=== PATIENT | male | born 1940 | race Caucasian/White ===

== ENCOUNTER 2021-07-23 13:50 | Inpatient (IN) | payer OTHER, MEDICARE ==
[~2021-07-23] VITALS: Ht 170.2 cm; Wt 63.4 kg
[~2021-07-23 13:50] MED LIST: ASA5UEC; MYLANTA TABLET1 TA1 PO; PREVACID15 MG PO; SULAR
[2021-07-23 13:55] VITALS: BP 110/60
[2021-07-23 14:33] LABS: ABSOLUTE NEUTROPHILS 4.1 thou/uL (1.4-8.2); BASOPHILS 1.4 % (0.0-2.0); EOSINOPHILS 2.3 % (0.0-3.0); HEMATOCRIT 35.7 % (42.0-52.0); HEMOGLOBIN 10.6 gm/dL (14.0-18.0); LYMPHOCYTES 10.3 % (24.0-44.0); MCH 22.9 pg (26.0-34.0); MCHC 29.8 g/dL (28.0-37.0); PLATELET COUNT 237 thou/uL (150-400); RBC 4.64 mil/uL (4.50-6.00); RDW 19.2 % (10.5-14.5); WBC 5.9 thou/uL (4.0-11.0)
[2021-07-23 14:37] LABS: CALCIUM 8.1 mg/dL (8.5-10.1); CREATININE 1.5 mg/dL (0.7-1.3); POTASSIUM 3.9 mmol/L (3.5-5.1)
[2021-07-23 14:44] LABS: INR 1.18; PROTIME 12.8 Seconds (10.5-12.1)
[2021-07-23 14:47] LABS: ALBUMIN 2.8 g/dL (3.4-5.0); TOTAL BILIRUBIN 0.4 mg/dL (0.2-1.0); TOTAL PROTEIN 6.2 g/dL (6.4-8.2)
[2021-07-23 15:24] LABS: ANISOCYTOSIS 2+; HYPOCHROMASIA SLIGHT; MACROCYTES FEW; MICROCYTES 1+; OVALOCYTES OCCASIONAL; POLYCHROMASIA OCCASIONAL
[2021-07-23] MEDS ORDERED: TRAZODONE HCL50 MG PO (15:56)
[2021-07-23] MEDS ORDERED: ARFORMOTER15 MCG/2 M INH (15:56)
[2021-07-23 17:14] LABS: URINE BILIRUBIN NEGATIVE (Negative); URINE BLOOD NEGATIVE (Negative); URINE CLARITY CLEAR; URINE COLOR YELLOW; URINE GLUCOSE-RANDOM* NEGATIVE (Negative); URINE KETONES NEGATIVE (Negative); URINE LEUKOCYTES-REFLEX NEGATIVE (Negative); URINE NITRITE-REFLEX NEGATIVE (Negative); URINE PROTEIN (DIPSTICK) NEGATIVE (Negative); URINE UROBILINOGEN 0.2 E.U./dl (0.2-1.0)
[2021-07-23 19:48] VITALS: BP 116/83
[2021-07-23 20:25] VITALS: BP 115/72
[2021-07-23 20:46] LABS: HEMATOCRIT 33.7 % (42.0-52.0); HEMOGLOBIN 10.1 gm/dL (14.0-18.0)
--- NOTE | 2021-07-23 23:42 | NUR ---
PATIENT ARRIVED TO ROOM 202 AT 1999 ACCOMPANIED BY SHERIFF'S SERGEANT AND PATIENT'S SON. PATIENT ABLE TO STAND AND PIVOT TO GET INTO BED BUT GAIT UNSTEADY--REQUIRES X1 ASSISTANCE. PATIENT'S SON PROVIDED PAPERWORK FROM FACILITY WHERE PATIENT LIVES. PATIENT ORIENTED BUT FORGETFUL (HX OF DEMENTIA). NO BLOODY STOOLS SINCE ADMISSION TO HOSPITAL. PATENT IV PRESENT, LOADING DOSE OF ZOSYN AND PROTONIX ADMINISTERED AND NS STARTED AT 75. CONTACTED DOWEL MACHINE OPERATOR AND ORDER RECEIVED TO START PROTONIX GTT. PATIENT NPO AT THIS TIME, NOT VOICING ANY CONCERNS OR PAIN. STABLE VITAL SIGNS. ORIENTED TO CALL LIGHT, FALL MONITORING/PROTOCOLS, UNIT ROUTINES, TV CONTROLS, LIGHT CONTROLS, AND MEDICATIONS. SON LEFT SHORTLY AFTER PATIENT WAS SETTLED. PATIENT NOW RESTING COMFORTABLY.
[2021-07-23] MEDS ORDERED: CLARITIN10 M3 PO (23:51)
[2021-07-23] MEDS ORDERED: ACETAMINOPHEN500 MG PO (23:53)
[2021-07-23] MEDS ORDERED: FAMOTIDINE 20 M20 MG PO (23:54)
[2021-07-23] MEDS ORDERED: FOLIC ACID1 MG PO (23:55)
[2021-07-23] MEDS ORDERED: SUPER THERAVIT1 EACH PO (23:55)
[2021-07-23] MEDS ORDERED: NORVASC5 MG PO (23:56)
[2021-07-24 04:45] VITALS: BP 103/63
[2021-07-24 05:32] LABS: HEMOGLOBIN 10.1 gm/dL (14.0-18.0); MCH 23.4 pg (26.0-34.0); MCHC 30.6 g/dL (28.0-37.0); MCV 76.6 fL (80.0-100.0); RBC 4.31 mil/uL (4.50-6.00); RDW 18.8 % (10.5-14.5)
[2021-07-24 05:53] LABS: CALCIUM 7.9 mg/dL (8.5-10.1); CREATININE 1.2 mg/dL (0.7-1.3); POTASSIUM 3.8 mmol/L (3.5-5.1)
[2021-07-24 07:15] VITALS: BP 117/77
--- NOTE | 2021-07-24 07:49 | EKG ---
[address] [place] [address] ELECTROCARDIOGRAM REPORT Name: DAVID POWELL Room #: 202-P ADM IN M.R.#: [id number] Admission: 07/23/21 Attend Phys: Sydney Singh MD Discharge: Date of : 38 Report #: [id number] [facility] ED Test Date: 2021-07-23 Test Time: 17:49:41 Pat Name: DAVID POWELL Department: Room: 202 Gender: M Digital Sales Assistant: saadia : [id number] Requested By: Vianey Miner Order Number: [id number] MD: Matias Samano Measurements Intervals [place] Rate: 108 P: NM: QRS: 18 QRSD: 87 T: 58 QT: 350 QTc: 469 Interpretive Statements Atrial fibrillation Low voltage, extremity leads Nonspecific repol abnormality, diffuse leads Compared to ECG 08/27/2005 13:39:20 Early repolarization now present Ectopic atrial rhythm no longer present Electronically Signed On 07-24-2021 7:49:10 STORY ANALYST by Matias Samano [email or web address] <ELECTRONICALLY SIGNED> By: Matias Samano MD, [facility] 07/24/21 0749 48 48 Matias Samano MD, FAC /EPI
[2021-07-24 11:30] VITALS: BP 121/79
--- NOTE | 2021-07-24 12:00 | NUR ---
Assumed care of pt this AM. Pt oriented to person & place, pleasant. On 2L NC, SR w/ PVCs on the monitor. Protonix gtt in place. Plan for possible discharge w/ hospice today. Pt DNR. Will continue to monitor needs.
--- NOTE | 2021-07-24 12:30 | NUR ---
OT RECIEVED ORDERS FOR EVAL AND TREAT. PER NURSING, PT. HAS ELECTED HOSPICE/PALLIATIVE MEASURES. NOT APPROPRIATE FOR THERAPY SERVICES AT THIS TIME. WILL D/C PT. FROM OT.
[2021-07-24] MEDS ORDERED: CIPRO500 M1 PO (13:49)
[2021-07-24] MEDS ORDERED: METRONIDAZOLE500 M4 PO (13:50)
[2021-07-24] MEDS ORDERED: PROTONIX40 M2 PO (13:50)
--- NOTE | 2021-07-24 14:07 | NUR ---
P.T. EVALUATION DEFERRED PT HAS DECIDED TO PROCEED WITH PALLIATIVE/HOSPICE CARE. PLAN IS TO D/C SOON PER RN. P.T. EVAL NOT INDICATED AT THIS TIME.
--- NOTE | 2021-07-24 14:49 | NUR ---
Patient admits from [facility] with GI Bleed. Family member Shari [facility] [facility] [employer]. She is DIL. She reports her mother in law lives at [facility] and she reports she has already reached out to [facility] to discuss hospice for patient. Sp with Mitzy with [facility] she came to hospital to eval patient. She reports patient can admit to [facility], Family requests patient return to [facility] to be with . Plan dc with hospice. Chart copied. [facility] for 1729. Outside DNR on chart. Rn to call report. Notified Shari, admissions of [facility] and [facility] of dc and timeframe.
[2021-07-24 15:30] VITALS: BP 125/76
== END 2021-07-24 16:36 | disposition hospice, home (50) | DRG 377 ==
LOC: ER 13:50 → EROBS 17:58 → 2N 17:58
PROVIDERS: Emergency Medicine; ADMIT Hospitalist; ATTEND Hospitalist
DX: K92.2 Gastrointestinal hemorrhage, unspecified (principal); N17.0 Acute kidney failure with tubular necrosis; E44.1 Mild protein-calorie malnutrition; I10 Essential (primary) hypertension; Z66 Do not resuscitate; K21.9 Gastro-esophageal reflux disease without esophagitis; J44.9 Chronic obstructive pulmonary disease, unspecified; I48.91 Unspecified atrial fibrillation; D64.9 Anemia, unspecified; R53.81 Other malaise; J98.4 Other disorders of lung; Z20.822 Contact with and (suspected) exposure to COVID-19; F03.90 Unspecified dementia, unspecified severity, without behavioral disturbance, psychotic disturbance, mood disturbance, and anxiety; Z79.82 Long term (current) use of aspirin; Z79.899 Other long term (current) drug therapy; Z85.46 Personal history of malignant neoplasm of prostate; Z90.49 Acquired absence of other specified parts of digestive tract; Z88.6 Allergy status to analgesic agent; Z91.011 Allergy to milk products; Z85.01 Personal history of malignant neoplasm of esophagus
CPT/HCPCS: 10081